=== PATIENT | male | born 1930 | race Caucasian/White ===

== ENCOUNTER 2017-08-11 14:49 | Inpatient (IN) ==
[2017-08-11] MEDS ORDERED: cefTRIAXone 1 GM VIAL IV ONE (14:57)
[2017-08-11] MEDS ORDERED: 0.9 % SODIUM CHLORIDE 1,000 ML IV ONE ×2 (15:24→16:20)
[2017-08-11 15:42] LABS: Basophils # (Auto) 0 K/mcL (0.0-0.3); Basophils % (Auto) 0.3 % (0.0-2.0); Eosinophils # (Auto) 0.3 K/mcL (0.0-0.7); Granulocytes % (Auto) 87.2 % (38.0-78.0); Lymphocytes # (Auto) 0.9 K/mcL (1.5-4.8); Lymphocytes % (Auto) 5.6 % (15.5-49.0); Mean Cell Volume 86.1 fL (80.0-100.0); Mean Corpuscular HGB Conc 33.1 g/dL (31.0-36.0); Mean Corpuscular Hemoglobin 28.5 pg (26.0-34.0); Monocytes # (Auto) 0.7 K/mcL (0.1-0.9); Monocytes % (Auto) 4.9 % (1.0-12.0); Platelet Count 309 K/mcL (140-440); RBC 4.85 M/mcL (4.50-5.90); Red Cell Distribution Width 15.4 % (11.5-14.5)
--- NOTE | 2017-08-11 15:51 | XRay Report ---
HISTORY: Reason for Exam:dyspnea FINDINGS: There are mild alveolar opacities in both lower lobes and around the right hilum. These are new findings since 07/23/17. Lung volumes are normal. There is no pleural effusion and no adenopathy is detected. The heart size is normal. IMPRESSION: Mild bilateral pneumonia, right greater than left Interpreted and Authenticated by: Alejandro Klein 08/11/17
--- NOTE | 2017-08-11 15:59 | Emergency Department Note ---
SOB HPI - General Chief Complaint: Shortness of Breath/Dyspnea Stated Complaint: shortness of breath Time Seen by Provider: 08/11/17 14:56 Source: EMS Mode of arrival: EMS Limitations: altered mental status - History of Present Illness 87-year-old male presents with shortness of breath. His states he was discharged from [facility] on Thursday after having a sinus infection and urinary tract infection. He was in the hospital for 2 weeks. We will attempt to get those old records. They state when he was discharged Thursday he went to [facility]. They went to visit him this morning and he was very short of breath and had audible wheezing and crackles. He was also complaining of shortness of breath. They decided to have him brought in here for evaluation. He has had a fever and does have a temperature of 100.1 on arrival. No nausea, vomiting, or diarrhea. He has had frequent urination and incontinence, worse than normal. He also has a lot of redness around his penis and a foul odor to his urine. They report his urine being very dark. Patient denies chest pain but is extremely poor historian and difficult to get information from. Family does state this is his baseline mentation. His is at the bedside. His daughter is also at the bedside, Kalyan. 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 They state he is in no code with limited interventions. A post form was completed. They would like him to have short-term IV fluids and antibiotics if it is helpful but also keep him comfortable. They do not want any chest compressions or intubation of any kind. Associated symptoms: Reports: fever, cough, wheezing. Denies: chest pain, nausea/vomiting - Related Data Home Medications Medication Instructions Recorded Confirmed albuterol sulfate HFA 90 2 puff INHALATION QID PRN g 05/28/17 07/17/17 mcg/actuation aerosol inhaler allopurinol 100 mg tablet 100 mg PO QDAY 05/28/17 07/17/17 blood sugar diagnostic strips See Dose Instructions .ROUTE 05/28/17 07/17/17 .MEDSUPPLY #20 each carboxymethylcellulose sodium 0.5 1 drp OPHTHALMIC TID PRN ml 05/28/17 07/17/17 % eye drops cholecalciferol (vitamin D3) 5,000 5,000 unit PO QDAY 05/28/17 07/17/17 unit capsule lisinopril 40 mg tablet 40 mg PO QDAY 05/28/17 07/17/17 meclizine 25 mg tablet See Label Instructions PO TID PRN 05/28/17 07/17/17 tab metformin 500 mg tablet 1,000 mg PO BID 05/28/17 07/17/17 glipizide 10 mg tablet 20 mg PO QDAY tab 06/03/17 07/17/17 hydrochlorothiazide PO 07/17/17 07/17/17 omega-3 fatty acids 1,000 mg 1,000 mg PO QDAY 07/17/17 07/17/17 capsule Previous Rx's Medication Instructions Recorded clobetasol 0.05 % topical gel 1 applic TOPICAL BID #30 g 07/17/17 tamsulosin 0.4 mg capsule 0.4 mg PO QDAY #30 cap 07/17/17 Levofloxacin [Levaquin] 500 mg PO DAILY #7 tab 07/23/17 Allergies Allergy/AdvReac Type Severity Reaction Status Date / Time No Known Drug Allergies Allergy Verified 08/11/17 14:58 Review of Systems All systems ED: reviewed and negative except as stated. 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) Cortical senile cataract (Chronic) Type 2 diabetes mellitus without complication (Chronic) Insomnia (Chronic) Pain of both hip joints (Chronic) Actinic keratosis (Chronic) Hip pain (Chronic) Hyperlipidemia (Chronic) Traumatic subdural hemorrhage (Chronic) Dizziness (Chronic) History of hydrocele (Chronic ~2006) Testicle swelling (Chronic) Epididymal cyst (Chronic) Hydrocele (Chronic) Subdural hematoma (Acute) Enlarged testicle (Chronic) Past Surgical History (Last Reviewed 07/17/17 @ 08:22 by Mya Mosley RN) History of cataract surgery (Acute) History of circumcision (Acute) History of hydrocelectomy (Acute) S/P appendectomy (Acute) S/P routine circumcision (Acute) History of hip replacement (Chronic) Source: old records reviewed, obtained from family Medical history: Reports: arthritis, DM, hypertension Surgical history ED: Reports: appendectomy, hip replacement - Social History smoking status: Former smoker Alcohol use: Reports: None Drug use: Reports: none Physical Exam Limitations: altered mental status General appearance: in distress, other (Patient will answer yes or no to questions most of the time but otherwise we are not able to get much information from him at all. He is picking at things and is constantly fidgeting and anxious. He is also in moderate respiratory distress. Use of accessory muscles present and audible wheezing and crackles upon presenting.) Eye: Present: normal appearance. Absent: conjunctival injection ENT: normal oropharynx, TM's normal bilaterally, normal external ear exam, other (Mucous membranes slightly dry) Neck: Present: normal inspection, trachea midline. Absent: tenderness, lymphadenopathy Chest: Present: symmetric chest wall rise Respiratory: Present: respiratory distress (Mild to moderate respiratory distress with use of accessory muscles, tachypnea, and audible wheezing and crackles on arrival), other (Lung sounds with rhonchi throughout) Cardiovascular: Present: regular rate, normal heart sounds Extremities: Present: normal inspection. Absent: pedal edema Psychiatric: Present: anxious Skin: Present: warm, dry, intact, normal color, erythema (There is some diffuse erythema to the penis. He has also an incontinent urine that is very odorous. He was cleaned cleaned up by nursing staff but remains with some erythema to the penis.). Absent: rash Course Vital Signs Temperature 97.7 F 08/11/17 14:50 Pulse Rate 93 H 08/11/17 14:50 Respiratory Rate 22 08/11/17 14:50 Blood Pressure 128/60 08/11/17 14:50 Pulse Oximetry (%) 91 08/11/17 14:50 Temperature 99.5 F H 08/11/17 16:25 Pulse Rate 92 H 08/11/17 16:16 Respiratory Rate 41 H 08/11/17 16:16 Blood Pressure 147/74 08/11/17 16:16 Pulse Oximetry (%) 100 08/11/17 16:16 Shortness of Breath/Dyspnea - [facility] Narrative Medical decision making narrative: @ [address] Cordoba who agrees to admit the patient. - Lab Data Lab results reviewed: Yes I reviewed the patient's lab results. Result diagrams: 08/11/17 14:55 08/11/17 14:55 Lab Results 08/11/17 08/11/17 08/11/17 Range/Units 14:55 14:55 14:55 WBC 15.3 H (4.5-11.0) K/mcL RBC 4.85 (4.50-5.90) M/mcL Hgb 13.8 (13.5-16.5) g/dL Hct 41.7 (41.0-55.0) % MCV 86.1 (80.0-100.0) fL MCH 28.5 (26.0-34.0) pg MCHC 33.1 (31.0-36.0) g/dL RDW 15.4 H (11.5-14.5) % Plt Count 309 (140-440) K/mcL MPV 10.6 H (7.4-10.4) fL Gran % 87.2 H (38.0-78.0) % Lymph % (Auto) 5.6 L (15.5-49.0) % [place] % (Auto) 4.9 (1.0-12.0) % Eos % (Auto) 2.0 (0.0-7.0) % Baso % (Auto) 0.3 (0.0-2.0) % Gran # 13.4 H (1.8-8.0) K/mcL Lymph # (Auto) 0.9 L (1.5-4.8) K/mcL [place] # (Auto) 0.7 (0.1-0.9) K/mcL Eos # (Auto) 0.3 (0.0-0.7) K/mcL Baso # (Auto) 0 (0.0-0.3) K/mcL VBG Lactic Acid 8.4 H* (0.5-2.2) mmol/L Sodium 145 (133-145) mmol/L Potassium 3.6 (3.3-5.1) mmol/L Chloride 100 (96-108) mmol/L Carbon Dioxide 21 L (22-30) mmol/L Anion Gap 24.0 H (8-16) BUN 47 H (8-23) mg/dl Creatinine 1.3 H (0.7-1.2) mg/dl GFR Calculation 49 Glucose 103 (70-105) mg/dL Calcium 9.5 (8.6-10.4) mg/dl Total Bilirubin 0.8 (0.0-1.0) mg/dL AST 24 (0-37) U/l ALT 14 (0-40) U/l Alkaline Phosphatase 72 (39-117) U/L Total Creatine Kinase 116 (24-195) IU/L CK-MB (CK-2) 3.3 (0-4.9) ng/ml Troponin T (0-0.03) ng/ml Total Protein 7.2 (5.9-8.4) gm/dL Albumin 4.0 (3.2-5.2) gm/dL Globulin 3.2 (2.2-3.7) gm/dL Albumin/Globulin Ratio 1.3 (1.0-2.3) Urine Color Urine Appearance Urine pH (5.0-9.0) Ur Specific [place] (1.000-1.035) Urine Protein (NEG) mg/dL Urine Glucose (UA) (NEG) mg/dL Urine Ketones (NEG) mg/dL Urine Occult Blood (<0.03) mg/dL Urine Nitrate (NEG) Urine Bilirubin (NEG) mg/dL Urine Urobilinogen (NEG) mg/dL Ur Leukocyte Esterase (NEG) /uL Urine RBC (0-1) /hpf Urine WBC (0-4) /hpf Ur Squamous Epith Cells (0-4) /hpf Urine Bacteria (0) /hpf Hyaline Casts (0-2) /lpf Urine Mucus (0) /hpf Ur Culture Indicated? Influenza A (Rapid) Influenza B (Rapid) 08/11/17 08/11/17 08/11/17 Range/Units 14:55 15:08 16:03 WBC (4.5-11.0) K/mcL RBC (4.50-5.90) M/mcL Hgb (13.5-16.5) g/dL Hct (41.0-55.0) % MCV (80.0-100.0) fL MCH (26.0-34.0) pg MCHC (31.0-36.0) g/dL RDW (11.5-14.5) % Plt Count (140-440) K/mcL MPV (7.4-10.4) fL Gran % (38.0-78.0) % Lymph % (Auto) (15.5-49.0) % [place] % (Auto) (1.0-12.0) % Eos % (Auto) (0.0-7.0) % Baso % (Auto) (0.0-2.0) % Gran # (1.8-8.0) K/mcL Lymph # (Auto) (1.5-4.8) K/mcL [place] # (Auto) (0.1-0.9) K/mcL Eos # (Auto) (0.0-0.7) K/mcL Baso # (Auto) (0.0-0.3) K/mcL VBG Lactic Acid (0.5-2.2) mmol/L Sodium (133-145) mmol/L Potassium (3.3-5.1) mmol/L Chloride (96-108) mmol/L Carbon Dioxide (22-30) mmol/L Anion Gap (8-16) BUN (8-23) mg/dl Creatinine (0.7-1.2) mg/dl GFR Calculation Glucose (70-105) mg/dL Calcium (8.6-10.4) mg/dl Total Bilirubin (0.0-1.0) mg/dL AST (0-37) U/l ALT (0-40) U/l Alkaline Phosphatase (39-117) U/L Total Creatine Kinase (24-195) IU/L CK-MB (CK-2) (0-4.9) ng/ml Troponin T < 0.01 (0-0.03) ng/ml Total Protein (5.9-8.4) gm/dL Albumin (3.2-5.2) gm/dL Globulin (2.2-3.7) gm/dL Albumin/Globulin Ratio (1.0-2.3) Urine Color [place] Urine Appearance Hazy Urine pH 5.0 (5.0-9.0) Ur Specific [place] 1.028 (1.000-1.035) Urine Protein 30 A (NEG) mg/dL Urine Glucose (UA) Negative (NEG) mg/dL Urine Ketones 20 A (NEG) mg/dL Urine Occult Blood Neg (<0.03) mg/dL Urine Nitrate Neg (NEG) Urine Bilirubin Neg (NEG) mg/dL Urine Urobilinogen 4.0 A (NEG) mg/dL Ur Leukocyte Esterase Neg (NEG) /uL Urine RBC 1 (0-1) /hpf Urine WBC 3 (0-4) /hpf Ur Squamous Epith Cells 0 (0-4) /hpf Urine Bacteria 0 (0) /hpf Hyaline Casts 27 H (0-2) /lpf Urine Mucus Many A (0) /hpf Ur Culture Indicated? No Influenza A (Rapid) Presumed negative Influenza B (Rapid) Presumed negative - Radiology Data Radiology results reviewed: Yes I reviewed the patient's radiology results. Disposition Pt seen by [facility]/PA only: Yes Clinical Impression: Bilateral pneumonia, Sepsis Disposition: Xfer As Inpt ([facility]) Condition: Serious Referrals: Abbie Mondragon ARNP [Primary Care Provider] - Time of Disposition: 16:45
[2017-08-11 16:03] LABS: ALT/SGPT 14 U/l (0-40); Albumin/Globulin Ratio 1.3 (1.0-2.3); Alkaline Phosphatase 72 U/L (39-117); Blood Urea Nitrogen 47 mg/dl (8-23); Creatine Kinase 116 IU/L (24-195); Creatine Kinase MB 3.3 ng/ml (0-4.9)
[2017-08-11] MEDS ORDERED: LEVOFLOXACIN 500 MG/100 ML BAG IV ONE (16:04)
[2017-08-11] MEDS ORDERED: LORazepam 2 MG/ML VIAL IV ONE ×2 (16:10→17:20)
[2017-08-11 16:31] LABS: Appearance,Urine HAZY; Bacteria,Urine 0 /hpf (0); Bilirubin,Urine NEG (NEG); Color,Urine AMBER; Glucose,Urine (UA) NEGATIVE (NEG); Leukocyte Esterase,Urine NEG /uL (NEG); Mucus,Urine MANY /hpf (0); Protein,Urine 30 mg/dL (NEG); Specific Gravity,Urine 1.028 (1.000-1.035); Urine Blood NEG mg/dL (<0.03); Urine Hyaline Cast 27 /lpf (0-2); Urine RBC 1 /hpf (0-1); Urine Squamous Epithelial Cell 0 /hpf (0-4); Urine WBC 3 /hpf (0-4)
--- NOTE | 2017-08-11 17:11 | Internal Med History&Physical ---
Medical - H&P: HPI Patient information: Note initiated : 08/11/17 at 5:09 pm Service Date, if different from initiated Date: [] Patient: Karan Clay 87 y/o M admitted on for shortness of breath. Chief Complaint: [] History of present illness: Mr. Clay is a 87 year old Male who lives at [facility], presented to the ER today, accompanied by his and daughter (both POA), The patient was his usual self approx few weeks ago, he was admitted to [facility] for a urinary tract infection as well as sinusitis. During this hospital stay. The patient developed an acute stroke, this led to difficulty in swallowing and garbled speech. The patient was discharged to [facility] living. This discharge happened on Thursday. Since been at this facility. The patient has not able to eat very well. He coughs whenever he tries to eat, he has garbled speech. Yesterday, the patient was aspirating whenever he tried to eat something. This afternoon when the family went to visit him. They noted that the patient was obtunded, breathing heavily and not doing well. He was battling with inspiration. Patient was brought to percussion emergency room for further evaluation. In the emergency room, the patient was noted to be febrile him a patient was tachycardic, patient had leukocytosis with WBC count of 15, is hypoxic, needing oxygen via nasal cannula, chest x-ray showing bilateral pneumonia, right more than the left, patient has a lactic acid of 8, creatinine of 1.3,in the BU in a 47. the patient had rattly sounds with inspiration and expiration, the patient was obtunded and would wake up only to deep touch. He was moaning and groaning. On my evaluation, I discussed with the patient's family was at the bedside that the patient most likely had aspiration pneumonia, and at this point in time is not able to maintain his airway. The patient needs to be intubated and probably started on IV fluids and antibiotics. If there is any possibility of a positive outcome. The patient's daughter, as well as the clearly noted that the patient has told them explicitly that he does not wish to be intubated or be on a breathing machine. The patient is in septic shock, patient has aspiration pneumonitis due to possible stroke. Patient has very poor overall prognosis. The patient's family chose to make the patient comfort care. Do not wish any further aggressive management, only measures to keep him comfortable. They understand that he will likely not survive the hospital stay. Patient will be admitted to the hospital for palliative care, pain management. 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) Cortical senile cataract (Chronic) Type 2 diabetes mellitus without complication (Chronic) Insomnia (Chronic) Pain of both hip joints (Chronic) Actinic keratosis (Chronic) Hip pain (Chronic) Hyperlipidemia (Chronic) Traumatic subdural hemorrhage (Chronic) Dizziness (Chronic) History of hydrocele (Chronic ~2006) Testicle swelling (Chronic) Epididymal cyst (Chronic) Hydrocele (Chronic) Subdural hematoma (Acute) Enlarged testicle (Chronic) Surgical history: Past Surgical History (Last Reviewed 07/17/17 @ 08:22 by Mya Mosley RN) History of cataract surgery (Acute) History of circumcision (Acute) History of hydrocelectomy (Acute) S/P appendectomy (Acute) S/P routine circumcision (Acute) History of hip replacement (Chronic) Pertinent family history: Family History (Last Reviewed 07/17/17 @ 08:22 by Mya Mosley RN) Brother Diabetes Family/Other Hypertension Heart attack Kidney stones Medical - H&P: Meds Home Medications Medication Instructions Recorded Confirmed Type allopurinol 100 mg tablet 100 mg PO QDAY 05/28/17 08/11/17 History cholecalciferol (vitamin D3) 5,000 5,000 unit PO QDAY 05/28/17 08/11/17 History unit capsule lisinopril 40 mg tablet 40 mg PO QDAY 05/28/17 08/11/17 History meclizine 25 mg tablet See Label Instructions PO TID PRN 05/28/17 08/11/17 History tab metformin 500 mg tablet 1,000 mg PO BID 05/28/17 08/11/17 History glipizide 10 mg tablet 5 mg PO BID tab 06/03/17 08/11/17 History clobetasol 0.05 % topical gel 1 applic TOPICAL BID #30 g 07/17/17 08/11/17 Rx omega-3 fatty acids 1,000 mg 1,000 mg PO QDAY 07/17/17 08/11/17 History capsule tamsulosin 0.4 mg capsule 0.4 mg PO QDAY #30 cap 07/17/17 08/11/17 Rx Aspirin [[place] Chewable Aspirin] 81 mg PO DAILY 08/11/17 08/11/17 History Atorvastatin [Lipitor] 10 mg PO HS 08/11/17 08/11/17 History Divalproex Sodium [Depakote ER] 1,000 mg PO DAILY 08/11/17 08/11/17 History Donepezil [Aricept] 5 mg PO HS 08/11/17 08/11/17 History Finasteride [Proscar] 5 mg PO DAILY 08/11/17 08/11/17 History Haloperidol [Haldol] 5 mg PO TIDP PRN 08/11/17 08/11/17 History Miconazole Nitrate [Miconazole 1] 1 each TOPICAL BID 08/11/17 08/11/17 History OLANZapine [Zyprexa] 5 mg PO DAILY 08/11/17 08/11/17 History amLODIPine [Norvasc] 5 mg PO DAILY 08/11/17 08/11/17 History traMADol [Ultram] 50 - 100 mg PO HS 08/11/17 08/11/17 History Allergies Allergy/AdvReac Type Severity Reaction Status Date / Time No Known Drug Allergies Allergy Verified 08/11/17 14:58 Medical - H&P: Exam - Constitutional Vitals: Temp Pulse Resp BP Pulse Ox 99.8 F H 74 27 H 103/52 100 08/11/17 16:46 08/11/17 16:46 08/11/17 16:46 08/11/17 16:46 08/11/17 16:46 Exam: Constitutional; low grade temp, drowsy, wakes ith deep stimulus, moaning and groaning. Eyes- , No periorbital swelling Ears- Ext ear normal, Neck- Midline trachea, supple, Respiratory system: Air Entry equal on both sides, coars inspiratory breathing sounds, rattles due to inadequate clearing of respiratory secretions. proloned exp breath sounds, wheezing. CVS- Rate rhythm regular, S1,S2 heard, no gallop, no rub. Abdomen- Soft nontender abdomen, no organomegaly, no tenderness, no guarding or rigidity, [employer]- AOOx0, unable to do comphrensive exam Medical - H&P: Reslt - Labs CBC & Chem 7: 08/11/17 14:55 08/11/17 14:55 Labs: Short CBC 08/11/17 Range/Units 14:55 WBC 15.3 H (4.5-11.0) K/mcL Hgb 13.8 (13.5-16.5) g/dL Hct 41.7 (41.0-55.0) % Plt Count 309 (140-440) K/mcL BMP 08/11/17 14:55 Sodium 145 Potassium 3.6 Chloride 100 Carbon Dioxide 21 L BUN 47 H Creatinine 1.3 H Glucose 103 Calcium 9.5 Cardiac Enzymes 08/11/17 08/11/17 Range/Units 14:55 14:55 Total Creatine Kinase 116 (24-195) IU/L CK-MB (CK-2) 3.3 (0-4.9) ng/ml Troponin T < 0.01 (0-0.03) ng/ml Liver Function 08/11/17 Range/Units 14:55 Total Bilirubin 0.8 (0.0-1.0) mg/dL AST 24 (0-37) U/l ALT 14 (0-40) U/l Alkaline Phosphatase 72 (39-117) U/L Albumin 4.0 (3.2-5.2) gm/dL Urine 08/11/17 Range/Units 16:03 Urine Color Gianna Urine Appearance Hazy Urine pH 5.0 (5.0-9.0) Ur Specific [place] 1.028 (1.000-1.035) Urine Protein 30 A (NEG) mg/dL Urine Glucose (UA) Negative (NEG) mg/dL Medical - H&P: A/P - Narrative A/P Narrative: A/P Aspiration pneumonitis acute respiratory failure septic shock with multiple organ failure lactic acidosis CVA with dysphagia, Inability to maintain patent airway Plan Patient to be admitted to [facility] Comfort care measures pain control IV morphine and ativan for pain and anxiety oxygen for comfort do not expect patient to survive. DVT prophylaxis not indicated Diet NPO for now. Social History - Tobacco smoking status: Former smoker - Alcohol alcohol intake frequency: does not drink - Substance use substance use type: does not use
[2017-08-11] MEDS ORDERED: LORazepam 2 MG/ML VIAL ONE (17:13)
[2017-08-11] MEDS: 0.9 % SODIUM CHLORIDE 1,000 ML IV SCH (18:00)
[2017-08-11] MEDS ORDERED: LACTOPEROXI/GLUC OXID/POT THIO 1 EACH GEL..EA. TOPICAL PRN (19:01)
[2017-08-11] MEDS ORDERED: ALBUTEROL SULFATE 2.5 MG/3 ML NEBULIZER NEB PRN (19:01)
[2017-08-11] MEDS ORDERED: ONDANSETRON 4 MG/2 ML VIAL IV PRN (19:01)
[2017-08-11] MEDS: LORazepam 2 MG/ML VIAL IV PRN ×3 (20:02→23:34)
[2017-08-11] MEDS: 0.9 % SODIUM CHLORIDE 10 ML SYRINGE IV SCH (21:19)
[2017-08-12] MEDS: LORazepam 2 MG/ML VIAL IV PRN ×5 (08:51→22:06)
[2017-08-12] MEDS: 0.9 % SODIUM CHLORIDE 10 ML SYRINGE IV SCH ×3 (08:52→22:42)
--- NOTE | 2017-08-12 16:09 | Internal Med Progress Note ---
Medical - PN: Subj Patient information: Note initiated : 08/12/17 at 4:06 pm Service Date, if different from initiated Date: [] Patient: Karan Clay 87 y/o M admitted on 08/11/17 for Shortness of Breath/ Pneumonia. Chief Complaint: [] Interval history: Mr. Clay is a 87 year old Male who lives at [facility], presented to the ER today, accompanied by his and daughter (both POA), The patient was his usual self approx few weeks ago, he was admitted to [facility] for a urinary tract infection as well as sinusitis. During this hospital stay. The patient developed an acute stroke, this led to difficulty in swallowing and garbled speech. The patient was discharged to [facility] living. This discharge happened on Thursday. Since been at this facility. The patient has not able to eat very well. He coughs whenever he tries to eat, he has garbled speech. Yesterday, the patient was aspirating whenever he tried to eat something. This afternoon when the family went to visit him. They noted that the patient was obtunded, breathing heavily and not doing well. He was battling with inspiration. Patient was brought to percussion emergency room for further evaluation. In the emergency room, the patient was noted to be febrile him a patient was tachycardic, patient had leukocytosis with WBC count of 15, is hypoxic, needing oxygen via nasal cannula, chest x-ray showing bilateral pneumonia, right more than the left, patient has a lactic acid of 8, creatinine of 1.3,in the BU in a 47. the patient had rattly sounds with inspiration and expiration, the patient was obtunded and would wake up only to deep touch. He was moaning and groaning. On my evaluation, I discussed with the patient's family was at the bedside that the patient most likely had aspiration pneumonia, and at this point in time is not able to maintain his airway. The patient needs to be intubated and probably started on IV fluids and antibiotics. If there is any possibility of a positive outcome. The patient's daughter, as well as the clearly noted that the patient has told them explicitly that he does not wish to be intubated or be on a breathing machine. The patient is in septic shock, patient has aspiration pneumonitis due to possible stroke. Patient has very poor overall prognosis. The patient's family chose to make the patient comfort care. Do not wish any further aggressive management, only measures to keep him comfortable. They understand that he will likely not survive the hospital stay. Patient will be admitted to the hospital for palliative care, pain management. Aug 12 patient seen and examined, family by the bedside, patient is nonverbal response to deep stimulus. Off oxygen. Still has gurgling in the throat. Patient seems comfortable. His family has declined vitals. Getting Ativan and morphine as needed for comfort and anxiety Pertinent ROS: unable - Constitutional Vitals: Vital Signs Temp Pulse Resp BP Pulse Ox 98.1 F 74 28 H 118/62 86 L 08/11/17 18:39 08/11/17 18:39 08/11/17 18:39 08/11/17 18:39 08/11/17 18:39 Period Temp Pulse Resp BP Sys/Whitlock Pulse Ox Last 24 Hr 98.1 F-99.8 F 74-92 27-41 97-147/52-74 86-100 Intake and Output 08/12/17 08/12/17 08/12/17 05:59 13:59 21:59 Intake Total 0 / 0 Output Total 250 / 250 Balance -250 / -250 Intake & Output: Intake & Output 08/12/17 08/12/17 08/12/17 05:59 13:59 21:59 Intake Total 0 / 0 Output Total 250 / 250 Balance -250 / -250 Intake: Oral 0 / 0 Output: Urine Catheter Amount 250 / 250 Exam: constitutional-not in distress. Eyes-no periorbital edema. Chest air entry equal n both sides, bilateral expiratory wheezes conducted breath sounds heard CVS-rate rhythm. Normal [employer]-drowsy, wakes up to deep stimulus, intermittent grimacing Medical - PN: Obj Da - Labs CBC & Chem 7: 08/11/17 14:55 08/11/17 14:55 Labs: Abnormal Lab Results 08/11/17 08/11/17 08/11/17 16:03 14:55 14:55 WBC RDW MPV Gran % Lymph % (Auto) Gran # Lymph # (Auto) VBG Lactic Acid 8.4 H* Carbon Dioxide 21 L Anion Gap 24.0 H BUN 47 H Creatinine 1.3 H Urine Protein 30 A Urine Ketones 20 A Urine Urobilinogen 4.0 A Hyaline Casts 27 H Urine Mucus Many A 08/11/17 14:55 WBC 15.3 H RDW 15.4 H MPV 10.6 H Gran % 87.2 H Lymph % (Auto) 5.6 L Gran # 13.4 H Lymph # (Auto) 0.9 L VBG Lactic Acid Carbon Dioxide Anion Gap BUN Creatinine Urine Protein Urine Ketones Urine Urobilinogen Hyaline Casts Urine Mucus Meds: Medications Albuterol Sulfate (Ventolin) 2.5 mg NEB Q2HP PRN PRN Reason: Shortness Of Breath Glucose Oxid/Lactoperoxid/Muramidas (Biotene) 1 each TOPICAL PRN PRN PRN Reason: Dry Mouth Sodium Chloride (Sodium Chloride 0.9%) 1,000 mls @ 20 mls/hr IV .Q24H [facility] Last Admin: 08/11/17 18:00 Dose: 20 mls/hr Lorazepam (Ativan) 0 mg IV Q1HP PRN; Protocol PRN Reason: ANXIETY/SEDATION Last Admin: 08/12/17 11:08 Dose: 2 mg Morphine Sulfate (Morphine) 0 mg IV Q1HP PRN PRN Reason: Pain Last Admin: 08/12/17 09:33 Dose: 4 mg Morphine Sulfate (Morphine) 4 mg NEB Q4HP PRN PRN Reason: Shortness Of Breath Ondansetron HCl (Zofran) 4 mg IV Q4HP PRN PRN Reason: Nausea And Vomiting Sodium Chloride (Saline Flush) 10 ml IV Q8 [facility] Last Admin: 08/12/17 08:52 Dose: Not Given Medical - PN: A/P - Time Spent With Patient Total time spent is greater than 50% in coordination of care (as documented) at patient's floor/unit and/or counseling patient: - Narrative A/P Narrative: A/P Aspiration pneumonitis acute respiratory failure septic shock with multiple organ failure lactic acidosis CVA with dysphagia, Inability to maintain patent airway Plan Continue Comfort care measures IV morphine and ativan for pain and anxiety do not expect patient to survive. DVT prophylaxis not indicated Diet NPO for now. Medical - PN: Qual - Stroke Symptom Onset Unknown: No - VTE Deep Vein Thrombosis/Pulmonary Embolism Present on Admission: No
[2017-08-12] MEDS: 0.9 % SODIUM CHLORIDE 1,000 ML IV SCH (19:20)
[2017-08-13] MEDS: 0.9 % SODIUM CHLORIDE 1,000 ML IV SCH (02:30)
[2017-08-13] MEDS: LORazepam 2 MG/ML VIAL IV PRN ×2 (05:55→13:43)
[2017-08-13] MEDS: 0.9 % SODIUM CHLORIDE 10 ML SYRINGE IV SCH ×2 (06:00→15:32)
--- NOTE | 2017-08-13 10:49 | Internal Med Progress Note ---
Medical - PN: Subj Patient information: Note initiated : 08/13/17 at 10:47 am Service Date, if different from initiated Date: [] Patient: Karan Clay 87 y/o M admitted on 08/11/17 for Shortness of Breath/ Pneumonia. Chief Complaint: [] Interval history: Mr. Clay is a 87 year old Male who lives at [facility], presented to the ER today, accompanied by his and daughter (both POA), The patient was his usual self approx few weeks ago, he was admitted to [facility] for a urinary tract infection as well as sinusitis. During this hospital stay. The patient developed an acute stroke, this led to difficulty in swallowing and garbled speech. The patient was discharged to [facility] living. This discharge happened on Thursday. Since been at this facility. The patient has not able to eat very well. He coughs whenever he tries to eat, he has garbled speech. Yesterday, the patient was aspirating whenever he tried to eat something. This afternoon when the family went to visit him. They noted that the patient was obtunded, breathing heavily and not doing well. He was battling with inspiration. Patient was brought to percussion emergency room for further evaluation. In the emergency room, the patient was noted to be febrile him a patient was tachycardic, patient had leukocytosis with WBC count of 15, is hypoxic, needing oxygen via nasal cannula, chest x-ray showing bilateral pneumonia, right more than the left, patient has a lactic acid of 8, creatinine of 1.3,in the BU in a 47. the patient had rattly sounds with inspiration and expiration, the patient was obtunded and would wake up only to deep touch. He was moaning and groaning. On my evaluation, I discussed with the patient's family was at the bedside that the patient most likely had aspiration pneumonia, and at this point in time is not able to maintain his airway. The patient needs to be intubated and probably started on IV fluids and antibiotics. If there is any possibility of a positive outcome. The patient's daughter, as well as the clearly noted that the patient has told them explicitly that he does not wish to be intubated or be on a breathing machine. The patient is in septic shock, patient has aspiration pneumonitis due to possible stroke. Patient has very poor overall prognosis. The patient's family chose to make the patient comfort care. Do not wish any further aggressive management, only measures to keep him comfortable. They understand that he will likely not survive the hospital stay. Patient will be admitted to the hospital for palliative care, pain management. Aug 12 patient seen and examined, family by the bedside, patient is nonverbal response to deep stimulus. Off oxygen. Still has gurgling in the throat. Patient seems comfortable. His family has declined vitals. Getting Ativan and morphine as needed for comfort and anxiety Aug 13 Patient seen examined, family by bedside unresponsive today, but much more calmer. Still breathing around 24-28, not sure if vitals signs recorded accurately reflect Resp rate patient on comfort care measures. Pertinent ROS: unable - Constitutional Vitals: Vital Signs Temp Pulse Resp BP Pulse Ox 98.3 F 73 12 118/70 85 L 08/13/17 09:07 08/13/17 09:07 08/13/17 09:07 08/13/17 09:07 08/13/17 09:07 Period Temp Pulse Resp BP Sys/Whitlock Pulse Ox Last 24 Hr 98.3 F 73 12-24 118/70 85 Intake and Output 08/12/17 08/13/17 08/13/17 21:59 05:59 13:59 Intake Total 650 / 650 Output Total 750 / 750 250 / 250 Balance -750 / -750 400 / 400 Intake & Output: Intake & Output 08/12/17 08/13/17 08/13/17 21:59 05:59 13:59 Intake Total 650 / 650 Output Total 750 / 750 250 / 250 Balance -750 / -750 400 / 400 Intake: IV 650 / 650 Sodium Chloride 0.9% 1,000 ml @ 650 / 650 20 mls/hr IV .Q24H [facility] Rx#: [id number] Oral 0 / 0 Output: Urine Catheter Amount 750 / 750 250 / 250 Exam: Constitutional; Afebrile, drowsy, not responding to verbal, or light stimulus, deep rub not given Eyes- No periorbital swelling Neck- Midline trachea, supple Respiratory system: Air Entry equal on both sides, no crackles noted, no gurgling resp today but pt is tachypenic. CVS- Rate rhythm regular, S1,S2 heard, no gallop, no rub. Medical - PN: Obj Da - Labs CBC & Chem 7: 08/11/17 14:55 08/11/17 14:55 Labs: Abnormal Lab Results 08/11/17 08/11/17 08/11/17 16:03 14:55 14:55 WBC RDW MPV Gran % Lymph % (Auto) Gran # Lymph # (Auto) VBG Lactic Acid 8.4 H* Carbon Dioxide 21 L Anion Gap 24.0 H BUN 47 H Creatinine 1.3 H Urine Protein 30 A Urine Ketones 20 A Urine Urobilinogen 4.0 A Hyaline Casts 27 H Urine Mucus Many A 08/11/17 14:55 WBC 15.3 H RDW 15.4 H MPV 10.6 H Gran % 87.2 H Lymph % (Auto) 5.6 L Gran # 13.4 H Lymph # (Auto) 0.9 L VBG Lactic Acid Carbon Dioxide Anion Gap BUN Creatinine Urine Protein Urine Ketones Urine Urobilinogen Hyaline Casts Urine Mucus Meds: Medications Albuterol Sulfate (Ventolin) 2.5 mg NEB Q2HP PRN PRN Reason: Shortness Of Breath Glucose Oxid/Lactoperoxid/Muramidas (Biotene) 1 each TOPICAL PRN PRN PRN Reason: Dry Mouth Sodium Chloride (Sodium Chloride 0.9%) 1,000 mls @ 20 mls/hr IV .Q24H [facility] Last Admin: 08/13/17 02:30 Dose: 20 mls/hr Lorazepam (Ativan) 0 mg IV Q1HP PRN; Protocol PRN Reason: ANXIETY/SEDATION Last Admin: 08/13/17 05:55 Dose: 2 mg Morphine Sulfate (Morphine) 0 mg IV Q1HP PRN PRN Reason: Pain Last Admin: 08/12/17 09:33 Dose: 4 mg Morphine Sulfate (Morphine) 4 mg NEB Q4HP PRN PRN Reason: Shortness Of Breath Ondansetron HCl (Zofran) 4 mg IV Q4HP PRN PRN Reason: Nausea And Vomiting Sodium Chloride (Saline Flush) 10 ml IV Q8 [facility] Last Admin: 08/13/17 06:00 Dose: Not Given Medical - PN: A/P - Time Spent With Patient Total time spent is greater than 50% in coordination of care (as documented) at patient's floor/unit and/or counseling patient: - Narrative A/P Narrative: A/P Aspiration pneumonitis acute respiratory failure septic shock with multiple organ failure lactic acidosis CVA with dysphagia, Inability to maintain patent airway Plan Continue Comfort care measures IV morphine and ativan for pain and anxiety do not expect patient to survive. Family educated and care plan reviewed with family. DVT prophylaxis not indicated Diet NPO for now. Medical - PN: Qual - Stroke Symptom Onset Unknown: No - VTE Deep Vein Thrombosis/Pulmonary Embolism Present on Admission: No
[2017-08-14] MEDS: 0.9 % SODIUM CHLORIDE 1,000 ML IV SCH ×3 (01:00→20:12)
[2017-08-14] MEDS: 0.9 % SODIUM CHLORIDE 10 ML SYRINGE IV SCH ×4 (01:01→20:11)
--- NOTE | 2017-08-14 15:18 | Internal Med Progress Note ---
Medical - PN: Subj Patient information: Note initiated : 08/14/17 at 3:16 pm Service Date, if different from initiated Date: [] Patient: Karan Clay 87 y/o M admitted on 08/11/17 for Shortness of Breath/ Pneumonia. Chief Complaint: [] Interval history: Mr. Clay is a 87 year old Male who lives at [facility], presented to the ER today, accompanied by his and daughter (both POA), The patient was his usual self approx few weeks ago, he was admitted to [facility] for a urinary tract infection as well as sinusitis. During this hospital stay. The patient developed an acute stroke, this led to difficulty in swallowing and garbled speech. The patient was discharged to [facility] living. This discharge happened on Thursday. Since been at this facility. The patient has not able to eat very well. He coughs whenever he tries to eat, he has garbled speech. Yesterday, the patient was aspirating whenever he tried to eat something. This afternoon when the family went to visit him. They noted that the patient was obtunded, breathing heavily and not doing well. He was battling with inspiration. Patient was brought to [facility] emergency room for further evaluation. In the emergency room, the patient was noted to be febrile him a patient was tachycardic, patient had leukocytosis with WBC count of 15, is hypoxic, needing oxygen via nasal cannula, chest x-ray showing bilateral pneumonia, right more than the left, patient has a lactic acid of 8, creatinine of 1.3,in the BU in a 47. the patient had rattly sounds with inspiration and expiration, the patient was obtunded and would wake up only to deep touch. He was moaning and groaning. On my evaluation, I discussed with the patient's family was at the bedside that the patient most likely had aspiration pneumonia, and at this point in time is not able to maintain his airway. The patient needs to be intubated and probably started on IV fluids and antibiotics. If there is any possibility of a positive outcome. The patient's daughter, as well as the clearly noted that the patient has told them explicitly that he does not wish to be intubated or be on a breathing machine. The patient is in septic shock, patient has aspiration pneumonitis due to possible stroke. Patient has very poor overall prognosis. The patient's family chose to make the patient comfort care. Do not wish any further aggressive management, only measures to keep him comfortable. They understand that he will likely not survive the hospital stay. Patient will be admitted to the hospital for palliative care, pain management. Aug 12 patient seen and examined, family by the bedside, patient is nonverbal response to deep stimulus. Off oxygen. Still has gurgling in the throat. Patient seems comfortable. His family has declined vitals. Getting Ativan and morphine as needed for comfort and anxiety Aug 13 Patient seen examined, family by bedside unresponsive today, but much more calmer. Still breathing around 24-28, not sure if vitals signs recorded accurately reflect Resp rate patient on comfort care measures. Aug 14 patient seen and examined, family was at bedside, unresponsive to respond to verbal or touch stimulus. Breathing much better today after morphine given. Comfort Care status. Pertinent ROS: unable - Constitutional Vitals: Vital Signs Temp Pulse Resp BP Pulse Ox 98.2 F 70 16 122/73 88 L 08/13/17 19:48 08/13/17 19:48 08/13/17 19:48 08/13/17 19:48 08/14/17 14:07 Period Temp Pulse Resp BP Sys/Whitlock Pulse Ox Last 24 Hr 98.2 F 70 16 122/73 87-89 Intake and Output 08/14/17 08/14/17 08/14/17 05:59 13:59 21:59 Intake Total 685 / 685 Output Total 275 / 275 Balance -275 / -275 685 / 685 Intake & Output: Intake & Output 08/14/17 08/14/17 08/14/17 05:59 13:59 21:59 Intake Total 685 / 685 Output Total 275 / 275 Balance -275 / -275 685 / 685 Intake: IV 685 / 685 Sodium Chloride 0.9% 1,000 ml @ 685 / 685 20 mls/hr IV .Q24H [facility] Rx#: [id number] Output: Urine Catheter Amount 275 / 275 Exam: pt In bed comfortable -Respiratory system-not in distress, rate anywhere between 12-18 TELEPHONIC NURSE-drowsy obtunded Medical - PN: Obj Da - Labs CBC & Chem 7: 08/11/17 14:55 08/11/17 14:55 Labs: Abnormal Lab Results 08/11/17 08/11/17 08/11/17 16:03 14:55 14:55 WBC RDW MPV Gran % Lymph % (Auto) Gran # Lymph # (Auto) VBG Lactic Acid 8.4 H* Carbon Dioxide 21 L Anion Gap 24.0 H BUN 47 H Creatinine 1.3 H Urine Protein 30 A Urine Ketones 20 A Urine Urobilinogen 4.0 A Hyaline Casts 27 H Urine Mucus Many A 08/11/17 14:55 WBC 15.3 H RDW 15.4 H MPV 10.6 H Gran % 87.2 H Lymph % (Auto) 5.6 L Gran # 13.4 H Lymph # (Auto) 0.9 L VBG Lactic Acid Carbon Dioxide Anion Gap BUN Creatinine Urine Protein Urine Ketones Urine Urobilinogen Hyaline Casts Urine Mucus Meds: Medications Albuterol Sulfate (Ventolin) 2.5 mg NEB Q2HP PRN PRN Reason: Shortness Of Breath Glucose Oxid/Lactoperoxid/Muramidas (Biotene) 1 each TOPICAL PRN PRN PRN Reason: Dry Mouth Sodium Chloride (Sodium Chloride 0.9%) 1,000 mls @ 20 mls/hr IV .Q24H [facility] Last Admin: 08/14/17 12:44 Dose: 20 mls/hr Lorazepam (Ativan) 0 mg IV Q1HP PRN; Protocol PRN Reason: ANXIETY/SEDATION Last Admin: 08/13/17 13:43 Dose: 2 mg Morphine Sulfate (Morphine) 0 mg IV Q1HP PRN PRN Reason: Pain Last Admin: 08/14/17 14:58 Dose: 4 mg Morphine Sulfate (Morphine) 4 mg NEB Q4HP PRN PRN Reason: Shortness Of Breath Ondansetron HCl (Zofran) 4 mg IV Q4HP PRN PRN Reason: Nausea And Vomiting Sodium Chloride (Saline Flush) 10 ml IV Q8 [facility] Last Admin: 08/14/17 14:59 Dose: 10 ml Medical - PN: A/P - Time Spent With Patient Total time spent is greater than 50% in coordination of care (as documented) at patient's floor/unit and/or counseling patient: - Narrative A/P Narrative: A/P Aspiration pneumonitis acute respiratory failure septic shock with multiple organ failure lactic acidosis CVA with dysphagia, Inability to maintain patent airway gram neg bactermia noted Plan Continue Comfort care measures IV morphine and ativan for pain and anxiety do not expect patient to survive. Family educated and care plan reviewed with family. No intervention for bacteremia DVT prophylaxis not indicated Diet NPO for now. Medical - PN: Qual - Stroke Symptom Onset Unknown: No - VTE Deep Vein Thrombosis/Pulmonary Embolism Present on Admission: No
[2017-08-15] MEDS: 0.9 % SODIUM CHLORIDE 10 ML SYRINGE IV SCH ×2 (06:43→12:22)
[2017-08-15] MEDS: LORazepam 2 MG/ML VIAL IV PRN ×6 (10:40→16:41)
--- NOTE | 2017-08-15 12:39 | Internal Med Progress Note ---
Medical - PN: Subj Patient information: Note initiated : 08/15/17 at 12:37 pm Service Date, if different from initiated Date: [] Patient: Karan Clay 87 y/o M admitted on 08/11/17 for Shortness of Breath/ Pneumonia. Chief Complaint: [] Interval history: Mr. Clay is a 87 year old Male who lives at [facility], presented to the ER today, accompanied by his and daughter (both POA), The patient was his usual self approx few weeks ago, he was admitted to [facility] for a urinary tract infection as well as sinusitis. During this hospital stay. The patient developed an acute stroke, this led to difficulty in swallowing and garbled speech. The patient was discharged to [facility] living. This discharge happened on Thursday. Since been at this facility. The patient has not able to eat very well. He coughs whenever he tries to eat, he has garbled speech. Yesterday, the patient was aspirating whenever he tried to eat something. This afternoon when the family went to visit him. They noted that the patient was obtunded, breathing heavily and not doing well. He was battling with inspiration. Patient was brought to percussion emergency room for further evaluation. In the emergency room, the patient was noted to be febrile him a patient was tachycardic, patient had leukocytosis with WBC count of 15, is hypoxic, needing oxygen via nasal cannula, chest x-ray showing bilateral pneumonia, right more than the left, patient has a lactic acid of 8, creatinine of 1.3,in the BU in a 47. the patient had rattly sounds with inspiration and expiration, the patient was obtunded and would wake up only to deep touch. He was moaning and groaning. On my evaluation, I discussed with the patient's family was at the bedside that the patient most likely had aspiration pneumonia, and at this point in time is not able to maintain his airway. The patient needs to be intubated and probably started on IV fluids and antibiotics. If there is any possibility of a positive outcome. The patient's daughter, as well as the clearly noted that the patient has told them explicitly that he does not wish to be intubated or be on a breathing machine. The patient is in septic shock, patient has aspiration pneumonitis due to possible stroke. Patient has very poor overall prognosis. The patient's family chose to make the patient comfort care. Do not wish any further aggressive management, only measures to keep him comfortable. They understand that he will likely not survive the hospital stay. Patient will be admitted to the hospital for palliative care, pain management. Aug 12 patient seen and examined, family by the bedside, patient is nonverbal response to deep stimulus. Off oxygen. Still has gurgling in the throat. Patient seems comfortable. His family has declined vitals. Getting Ativan and morphine as needed for comfort and anxiety Aug 13 Patient seen examined, family by bedside unresponsive today, but much more calmer. Still breathing around 24-, not sure if vitals signs recorded accurately reflect Resp rate patient on comfort care measures. Aug 14 patient seen and examined, family was at bedside, unresponsive to respond to verbal or touch stimulus. Breathing much better today after morphine given. Comfort Care status. aug 15 patient seen and examined no acute overnight events, family at the bedside. Patient has some labored breathing today. agonal gasping for breath.plan to give morphine more frequently for better comfort. is imminent Pertinent ROS: patient unresponsive Gasping for air, agonal breathing, tachypneic - Constitutional Vitals: Vital Signs Temp Pulse Resp BP Pulse Ox 99.6 F H 72 28 H 190/100 86 L 08/15/17 07:39 08/15/17 12:22 08/15/17 12:22 08/15/17 07:39 08/15/17 07:39 Period Temp Pulse Resp BP Sys/Whitlock Pulse Ox Last 24 Hr 98.5 F-99.6 F 72-76 18-28 160-190/87-100 86-90 Intake and Output 08/14/17 08/15/17 08/15/17 21:59 05:59 13:59 Intake Total 0 / 0 1000 / 1000 Output Total 425 / 425 250 / 250 Balance -425 / -425 -250 / -250 1000 / 1000 Intake & Output: Intake & Output 08/14/17 08/15/17 08/15/17 21:59 05:59 13:59 Intake Total 0 / 0 1000 / 1000 Output Total 425 / 425 250 / 250 Balance -425 / -425 -250 / -250 1000 / 1000 Intake: IV 1000 / 1000 Sodium Chloride 0.9% 1,000 ml @ 1000 / 1000 20 mls/hr IV .Q24H [facility] Rx#: [id number] Oral 0 / 0 0 / 0 Output: Urine Catheter Amount 425 / 425 250 / 250 Medical - PN: Obj Da - Labs CBC & Chem 7: 08/11/17 14:55 08/11/17 14:55 Meds: Medications Albuterol Sulfate (Ventolin) 2.5 mg NEB Q2HP PRN PRN Reason: Shortness Of Breath Glucose Oxid/Lactoperoxid/Muramidas (Biotene) 1 each TOPICAL PRN PRN PRN Reason: Dry Mouth Sodium Chloride (Sodium Chloride 0.9%) 1,000 mls @ 20 mls/hr IV .Q24H [facility] Last Infusion: 08/15/17 10:34 Dose: Infused Lorazepam (Ativan) 0 mg IV Q1HP PRN; Protocol PRN Reason: ANXIETY/SEDATION Last Admin: 08/15/17 12:21 Dose: 2 mg Morphine Sulfate (Morphine) 4 mg NEB Q4HP PRN PRN Reason: Shortness Of Breath Last Admin: 08/15/17 12:21 Dose: 4 mg Morphine Sulfate (Morphine) 0 mg IV Q1HP PRN PRN Reason: Pain Last Admin: 08/15/17 12:21 Dose: 4 mg Ondansetron HCl (Zofran) 4 mg IV Q4HP PRN PRN Reason: Nausea And Vomiting Sodium Chloride (Saline Flush) 10 ml IV Q8 [facility] Last Admin: 08/15/17 12:22 Dose: 10 ml Medical - PN: A/P - Time Spent With Patient Total time spent is greater than 50% in coordination of care (as documented) at patient's floor/unit and/or counseling patient: - Narrative A/P Narrative: A/P Aspiration pneumonitis acute respiratory failure septic shock with multiple organ failure lactic acidosis CVA with dysphagia, Inability to maintain patent airway gram neg bactermia noted Plan Continue Comfort care measures IV morphine and ativan for pain and anxiety, morphine every hour increased the dose imminent Family by the bedside DVT prophylaxis not indicated Diet NPO for now. Medical - PN: Qual - Stroke Symptom Onset Unknown: No - VTE Deep Vein Thrombosis/Pulmonary Embolism Present on Admission: No
[2017-08-15] MEDS: 0.9 % SODIUM CHLORIDE 1,000 ML IV SCH (17:09)
--- NOTE | 2017-08-16 10:20 | Death Note ---
Discharge Sum: Prov - Provider Patient information: Note initiated : 08/16/17 at 10:16 am Service Date, if different from initiated Date: [] Patient: Karan Clay 87 y/o M admitted on 08/11/17 for Shortness of Breath/ Pneumonia. Chief Complaint: [] Primary care physician: Abbie Mondragon Admitting clinician: Georgi Cordoba Consults: 08/11/17 16:51 Consult to Physician [CONS] Stat Comment: Consulting Provider: Georgi Cordoba Reason For Exam: Physician to Consult Discharge Sum: Diag - PCOD Cause of : Aspiration pneumonia Discharge Sum: Summary - Date and Time Date of admission: 08/11/17 18:33 Date of : 08/15/17 Time of : 18:10 - Summary Details: Mr. Clay is a 87 year old Male who lives at [facility], presented to the ER , accompanied by his and daughter (both POClaudette), The patientw as recently admitted to [facility] for a urinary tract infection as well as sinusitis. During this hospital stay the patient developed an acute stroke, this led to difficulty in swallowing and garbled speech. The patient was discharged to [facility] living. This discharge happened on Thursday. Since been at this facility. The patient has not able to eat very well. He coughs whenever he tries to eat, he has garbled speech. The day before admission, the patient was aspirating whenever he tried to eat something. On the day of admission in the afternoon, pts family noted that the patient was obtunded, breathing heavily and not doing well. Patient was brought to emergency room for further evaluation. In the emergency room, the patient was noted to be febrile him a patient was tachycardic, patient had leukocytosis with WBC count of 15, is hypoxic, needing oxygen via nasal cannula, chest x-ray showing bilateral pneumonia, right more than the left, patient has a lactic acid of 8, creatinine of 1.3,in the BU in a 47. the patient had rattly sounds with inspiration and expiration, the patient was obtunded and would wake up only to deep touch. He was moaning and groaning. On my evaluation, I discussed with the patient's family was at the bedside that the patient most likely had aspiration pneumonia, and at this point in time is not able to maintain his airway. The patient needs to be intubated and probably started on IV fluids and antibiotics. If there is any possibility of a positive outcome. The patient's daughter, as well as the clearly noted that the patient has told them explicitly that he does not wish to be intubated or be on a breathing machine. The patient is in septic shock, patient has aspiration pneumonitis due to possible stroke. Patient has very poor overall prognosis. The patient's family chose to make the patient comfort care. Do not wish any further aggressive management, only measures to keep him comfortable. They understand that he will likely not survive the hospital stay. The patient was kept comfortable during the hospital stay. Agitation and anxiety and pain were managed with morphine as well as lorazepam. The patient stayed in the hospital until the time of . Patient on 2017 at 1810 family was at bedside. - Additional Data Confirmation of as documented by pronouncing clinician: no pulse, no respirations, no heart sounds, pupils fixed and dilated Family: at bedside Attending/PCP notified?: Yes Attending physician: Georgi Cordoba Was code activated?: No Autopsy requested?: No land examiner notified?: No Organ bank notified?: Yes Advance directives?: Yes Hospice patient?: Yes
== END 2017-08-15 22:00 | disposition expired | DRG 871 ==
LOC: ED 14:49 → MEDSUR 18:33
PROVIDERS: ADMIT Internal Medicine; ATTEND Internal Medicine